=== PATIENT | male | born 1965 | race Caucasian/White ===

== ENCOUNTER 2017-12-10 11:05 | Emergency (ER) | payer OTHER ==
--- NOTE | 2017-12-10 11:27 | EDM.PDOC ---
ED HPI GENERAL MEDICAL PROBLEM - General Chief Complaint: Abdominal Pain Stated Complaint: PAIN IN ABD. Time Seen by Provider: 12/10/17 11:26 Source of Information: Reports: Patient History Limitations: Reports: No Limitations - History of Present Illness INITIAL COMMENTS - FREE TEXT/NARRATIVE: HISTORY AND PHYSICAL: []52-year-old male presenting with abdominal pain History of Present Illness: []Patient reports being ill 1 week with abdominal pain increasing this morning Pain is rated 8/10 Patient reports diarrhea last night and then 2 formed stools today Patient reports that a couple years ago he had a punctured lung. Review of Systems: As per history of present illness and below otherwise all systems reviewed and negative. Past medical history: As per history of present illness and as reviewed below otherwise noncontributory. Surgical history: As per history of present illness and as reviewed below otherwise noncontributory. Has had an appendectomy Social history: No reported history of drug or alcohol abuse. Family history: As per history of present illness and as reviewed below otherwise noncontributory. Physical exam: Pleasant alert and oriented gentleman answering questions appropriately in full sentences without any shortness of breath. Facial grimaces when moving. HEENT: Atraumatic, normocehpalic, pupils reactive, negative for conjunctival pallor or scleral icterus, mucous membranes moist, throat clear, neck supple, nontender, trachea midline. Lungs: Clear to auscultation, breath sounds equal bilaterally, chest non tender. Heart: S1S2, regular, negative for clicks, rubs, or JVD. Abdomen: Soft, mildly distended, exquisite tenderness. Mild rebound to right lower quadrant. Negative for masses or hepatossplenmegaly. Negative for costovertebral tenderness. Pelvis: Stable nontender. Genitourinary: Deferred. Rectal: Deferred Extremities: Atraumatic, negative for cords or calf pain. Neurovascular unremarkable. Neuro: Awake, alert, oriented. Cranial nerves II through XII unremarkable. Cerebellum unremarkable. Motor and sensory unremarkable throughout. Exam nonfocal. 14:[address] Aguilera for evaluation after the CT scan complete. 1420 Dr. Aguilera is here has really reexamined this patient will need to transfer this patient due to his gastric bypass and [facility] 1 call to [facility] Dr. Toure is the surgeon extrusion press operator said that the patient at 1445 Dr. Aguilera and I have discussed with this patient the necessity to fly him for transfer to [place] to achieve best care. He is agreeable to this recommended course of action Diagnostics: [CBC CMP amylase lipase abdominal pelvis CT] Therapeutics: []IV fluids Morphine Zofran Dilaudid Impression: []Peritonitis Plan: [Transfer per area of the chest to [facility]] Definitive disposition and diagnosis as appropriate pending reevaluation and review of above. Onset: Today, Sudden Duration: Hour(s):, Other (Has been gradually pain for 1 week worsening today) Location: Reports: Abdomen Quality: Reports: Stabbing, Throbbing Severity: Severe Improves with: Reports: None Worsens with: Reports: None abdomen Pain Score (Numeric/FACES): 8 - Related Data Allergies Allergy/AdvReac Type Severity Reaction Status Date / Time No Known Allergies Allergy Verified 12/10/17 11:16 Home Meds: Home Meds Allopurinol [Zyloprim] 300 mg PO DAILY 12/10/17 [History] DULoxetine [Cymbalta] 30 mg PO DAILY 12/10/17 [History] Temazepam 300 mg PO DAILY 12/10/17 [History] lamoTRIgine [Lamotrigine] 200 mg PO DAILY 12/10/17 [History] Past Medical History HEENT History: Reports: Other (See Below) Other HEENT History: Deviated Septum Cardiovascular History: Reports: Hypertension Respiratory History: Reports: None Gastrointestinal History: Reports: GERD Genitourinary History: Reports: None Musculoskeletal History: Reports: None Neurological History: Reports: None Psychiatric History: Reports: Bipolar, Depression Endocrine/Metabolic History: Reports: Hypothyroidism Hematologic History: Reports: None Immunologic History: Reports: None Oncologic (Cancer) History: Reports: None Dermatologic History: Reports: None - Infectious Disease History Infectious Disease History: Reports: Chicken Pox, Measles, Mumps, Other (See Below) Other Infectious Disease History: Childhood - Past Surgical History Head Surgeries/Procedures: Reports: None HEENT Surgical History: Reports: None Cardiovascular Surgical History: Reports: None Respiratory Surgical History: Reports: None GI Surgical History: Reports: Appendectomy, Bariatric Procedure, Cholecystectomy Male Surgical History: Reports: None Endocrine Surgical History: Reports: None Neurological Surgical History: Reports: None Musculoskeletal Surgical History: Reports: None Oncologic Surgical History: Reports: None Dermatological Surgical History: Reports: None Social & Family History - Family History Family Medical History: Noncontributory - Tobacco Use Smoking Status *Q: Never Smoker Second Hand Smoke Exposure: No - Caffeine Use Caffeine Use: Reports: Coffee, Energy Drinks - Recreational Drug Use Recreational Drug Use: No ED ROS GENERAL - Review of Systems Review Of Systems: ROS reveals no pertinent complaints other than HPI. ED EXAM, GI/ABD - Physical Exam Exam: See Below (See dictation) Course - Vital Signs Last Recorded V/S: Last Vital Signs Temp 35.7 C 12/10/17 11:13 Pulse 92 12/10/17 11:13 Resp 18 12/10/17 11:13 BP 131/83 12/10/17 11:13 Pulse Ox 93 L 12/10/17 11:13 - Orders/Labs/Meds Orders: Active Orders 24 hr Category Date Time Status Abdomen Pelvis w Cont [CT] Stat Exams 12/10/17 11:30 Taken CULTURE URINE [RM] Stat Lab 12/10/17 11:40 Received Sodium Chloride 0.9% [Normal Saline] 1,000 ml Med 12/10/17 14:08 Active IV STAT Sodium Chloride 0.9% [Normal Saline] 500 ml Med 12/10/17 11:30 Active IV STAT Sodium Chloride 0.9% [Saline Flush] Med 12/10/17 11:30 Active 10 ml FLUSH ASDIRECTED PRN Sodium Chloride 0.9% [Saline Flush] Med 12/10/17 11:30 Active 2.5 ml FLUSH ASDIRECTED PRN Saline Lock Insert [OM.PC] Stat Oth 12/10/17 11:29 Ordered Medication Orders Sodium Chloride (Normal Saline) 500 mls @ 999 mls/hr IV STAT MARLON Sodium Chloride (Normal Saline) 1,000 mls @ 999 mls/hr IV STAT ONE Stop: 12/10/17 15:08 Last Admin: 12/10/17 14:53 Dose: 999 mls/hr Sodium Chloride (Saline Flush) 10 ml FLUSH ASDIRECTED PRN PRN Reason: Keep Vein Open Sodium Chloride (Saline Flush) 2.5 ml FLUSH ASDIRECTED PRN PRN Reason: Keep Vein Open Labs: Laboratory Tests 12/10/17 12/10/17 12/10/17 Range/Units 11:40 12:06 12:06 WBC 14.14 H (4.0-11.0) K/uL RBC 5.24 (4.50-5.90) M/uL Hgb 17.2 H (13.0-17.0) g/dL Hct 50.1 H (38.0-50.0) % MCV 95.6 (80.0-98.0) fL MCH 32.8 H (27.0-32.0) pg MCHC 34.3 (31.0-37.0) g/dL RDW Std Deviation 47.0 (28.0-62.0) fl RDW Coeff of [place] 13 (11.0-15.0) % Plt Count 219 (150-400) K/uL MPV 9.90 (7.40-12.00) fL Neut % (Auto) 84.2 H (48.0-80.0) % Lymph % (Auto) 8.2 L (16.0-40.0) % [place] % (Auto) 7.3 (0.0-15.0) % Eos % (Auto) 0.1 (0.0-7.0) % Baso % (Auto) 0.2 (0.0-1.5) % Neut # (Auto) 11.9 H (1.4-5.7) K/uL Lymph # (Auto) 1.2 (0.6-2.4) K/uL [place] # (Auto) 1.0 H (0.0-0.8) K/uL Eos # (Auto) 0.0 (0.0-0.7) K/uL Baso # (Auto) 0.0 (0.0-0.1) K/uL Nucleated RBC % 0.0 /100WBC Nucleated RBCs # 0 K/uL Sodium 139 (136-146) mmol/L Potassium 4.4 (3.5-5.1) mmol/L Chloride 107 (98-110) mmol/L Carbon Dioxide 19 L (21-31) mmol/L BUN 12 (6.0-23.0) mg/dL Creatinine 0.7 (0.6-1.5) mg/dL Est Cr Clr Drug Dosing 139.51 mL/min Estimated GFR (MDRD) > 60.0 ml/min Glucose 104 (60-110) mg/dL Calcium 9.5 (8.8-10.8) mg/dL Total Bilirubin 1.7 H (0.1-1.5) mg/dL AST 26 (5-40) IU/L ALT 23 (8-54) IU/L Alkaline Phosphatase 105 (40-150) Total Protein 6.8 (6.0-8.0) g/dL Albumin 4.4 (3.5-5.0) g/dL Globulin 2.4 (2.0-3.5) g/dL Albumin/Globulin Ratio 1.8 (1.3-2.8) Amylase 38 (10-90) U/L Lipase < 9 (7-80) U/L Urine Color YELLOW Urine Appearance CLEAR Urine pH 5.0 (5.0-8.0) Ur Specific [place] 1.025 (1.001-1.035) Urine Protein NEGATIVE (NEGATIVE) mg/dL Urine Glucose (UA) NEGATIVE (NEGATIVE) mg/dL Urine Ketones >=80 (NEGATIVE) mg/dL Urine Occult Blood NEGATIVE (NEGATIVE) Urine Nitrite NEGATIVE (NEGATIVE) Urine Bilirubin SMALL H (NEGATIVE) Urine Ictotest NEGATIVE Urine Urobilinogen 0.2 (<2.0) EU/dL Ur Leukocyte Esterase NEGATIVE (NEGATIVE) Urine RBC NONE SEEN (0-2/HPF) Urine WBC NONE SEEN (0-5/HPF) Ur Squamous Epith Cells FEW Calcium Oxalate Crystal MANY (NEGATIVE) Urine Bacteria NOT SEEN (NEGATIVE) Urine Mucus LIGHT (NONE-MOD) Meds: Medications Generic Name Dose Route Start Last Admin Trade Name Freq PRN Reason Stop Dose Admin Sodium Chloride 500 mls @ 999 mls/hr 12/10/17 11:30 Normal Saline IV STAT MARLON Sodium Chloride 1,000 mls @ 999 mls/hr 12/10/17 14:08 12/10/17 14:53 Normal Saline IV 12/10/17 15:08 999 mls/hr STAT ONE Administration Sodium Chloride 10 ml 12/10/17 11:30 Saline Flush FLUSH ASDIRECTED PRN Keep Vein Open Sodium Chloride 2.5 ml 12/10/17 11:30 Saline Flush FLUSH ASDIRECTED PRN Keep Vein Open Discontinued Medications Generic Name Dose Route Start Last Admin Trade Name Freq PRN Reason Stop Dose Admin Hydromorphone HCl 1 mg 12/10/17 14:06 Dilaudid IVPUSH 12/10/17 14:07 ONETIME ONE Hydromorphone HCl Confirm 12/10/17 14:50 Dilaudid Administered 12/10/17 14:51 Dose 1 mg .ROUTE .STK-MED ONE Hydromorphone HCl 1 mg 12/10/17 14:56 Dilaudid IM 12/10/17 14:57 ONETIME ONE Hydromorphone HCl 1 mg 12/10/17 14:57 12/10/17 14:57 Dilaudid IVPUSH 12/10/17 14:58 1 mg ONETIME ONE Administration Sodium Chloride 1,000 mls @ 999 mls/hr 12/10/17 12:39 12/10/17 12:40 Normal Saline IV 12/10/17 13:39 999 mls/hr STAT ONE Administration Iopamidol 100 ml 12/10/17 13:07 12/10/17 13:07 Isovue-370 (76%) IVPUSH 12/10/17 13:08 100 ml ONETIME STA Administration Morphine Sulfate 2 mg 12/10/17 11:30 12/10/17 12:42 Morphine IVPUSH 12/10/17 11:31 2 mg ONETIME ONE Administration Ondansetron HCl 4 mg 12/10/17 11:30 12/10/17 12:40 Zofran IVPUSH 12/10/17 11:31 4 mg ONETIME ONE Administration Ondansetron HCl 4 mg 12/10/17 14:46 12/10/17 14:54 Zofran IVPUSH 12/10/17 14:47 4 mg ONETIME ONE Administration Departure - Departure Time of Disposition: 15:01 Disposition: DC/Tfer to Acute Hospital 02 Condition: Fair Clinical Impression: Peritonitis (acute) generalized - Discharge Information Referrals: PCP,Not In Area [Primary Care Provider] - Forms: ED Department Discharge - My Orders Last 24 Hours: My Active Orders 12/10/17 11:29 Saline Lock Insert [OM.PC] Stat 12/10/17 11:30 Abdomen Pelvis w Cont [CT] Stat Sodium Chloride 0.9% [Normal Saline] 500 ml IV STAT Sodium Chloride 0.9% [Saline Flush] 10 ml FLUSH ASDIRECTED PRN Sodium Chloride 0.9% [Saline Flush] 2.5 ml FLUSH ASDIRECTED PRN 12/10/17 11:40 CULTURE URINE [RM] Stat 12/10/17 14:08 Sodium Chloride 0.9% [Normal Saline] 1,000 ml IV STAT - Assessment/Plan Last 24 Hours: My Active Orders 12/10/17 11:29 Saline Lock Insert [OM.PC] Stat 12/10/17 11:30 Abdomen Pelvis w Cont [CT] Stat Sodium Chloride 0.9% [Normal Saline] 500 ml IV STAT Sodium Chloride 0.9% [Saline Flush] 10 ml FLUSH ASDIRECTED PRN Sodium Chloride 0.9% [Saline Flush] 2.5 ml FLUSH ASDIRECTED PRN 12/10/17 11:40 CULTURE URINE [RM] Stat 12/10/17 14:08 Sodium Chloride 0.9% [Normal Saline] 1,000 ml IV STAT
[2017-12-10] MEDS ORDERED: Sodium Chloride 0.9% 2.5 ML Syringe FLUSH PRN (11:30)
[2017-12-10] MEDS ORDERED: Morphine 2 MG/ML Syringe IVPUSH ONE (11:30)
[2017-12-10] MEDS ORDERED: Sodium Chloride 0.9% 500 ML IV SCH (11:30)
[2017-12-10] MEDS ORDERED: Ondansetron 4 MG/2 ML SDV IVPUSH ONE ×2 (11:30→14:46)
[2017-12-10] MEDS ORDERED: Sodium Chloride 0.9% 10 ML Syringe FLUSH PRN (11:30)
[2017-12-10 12:34] LABS: CHLORIDE,CL 107 mmol/L (98-110); SODIUM,NA 139 mmol/L (136-146)
[2017-12-10] MEDS ORDERED: Sodium Chloride 0.9% 1,000 ML IV ONE ×2 (12:39→14:08)
[2017-12-10] MEDS ORDERED: Iopamidol 755 Mg/ML 100 ML Bottle IVPUSH STA (13:07)
[2017-12-10] MEDS ORDERED: HYDROmorphone 2 MG/ML Syringe IVPUSH ONE (14:06)
--- NOTE | 2017-12-10 14:47 | PCM.CONS ---
H&P History of Present Illness - General Date of Service: 12/10/17 Admit Problem/Dx: Abdominal pain Source of Information: Patient History Limitations: Reports: No Limitations - History of Present Illness Initial Comments - Free Text/Narative: Patient is a 52 year old male with a past medical history significant for a gastric bypass 13 years ago who presents with abdominal pain. He has been experiencing epigastric discomfort all week. It has been progressively worsening but today it suddenly became severe. He has intermittent reflux but doesnt take medication for it. His pain is now all over his abdomen and is made worse with palpation and movement. He feels nauseated and bloated. He denies fever. He had two BM yesterday and one today. abdomen Pain Score (Numeric/FACES): 8 - Related Data Allergies/Adverse Reactions: Allergies Allergy/AdvReac Type Severity Reaction Status Date / Time No Known Allergies Allergy Verified 12/10/17 11:16 Home Medications: Home Meds Allopurinol [Zyloprim] 300 mg PO DAILY 12/10/17 [History] DULoxetine [Cymbalta] 30 mg PO DAILY 12/10/17 [History] Temazepam 300 mg PO DAILY 12/10/17 [History] lamoTRIgine [Lamotrigine] 200 mg PO DAILY 12/10/17 [History] Past Medical History HEENT History: Reports: Other (See Below) Other HEENT History: Deviated Septum Cardiovascular History: Reports: Hypertension Respiratory History: Reports: None Gastrointestinal History: Reports: GERD Genitourinary History: Reports: None Musculoskeletal History: Reports: None Neurological History: Reports: None Psychiatric History: Reports: Bipolar, Depression Endocrine/Metabolic History: Reports: Hypothyroidism Hematologic History: Reports: None Immunologic History: Reports: None Oncologic (Cancer) History: Reports: None Dermatologic History: Reports: None - Infectious Disease History Infectious Disease History: Reports: Chicken Pox, Measles, Mumps, Other (See Below) Other Infectious Disease History: Childhood - Past Surgical History Head Surgeries/Procedures: Reports: None HEENT Surgical History: Reports: None Cardiovascular Surgical History: Reports: None Respiratory Surgical History: Reports: None GI Surgical History: Reports: Appendectomy, Bariatric Procedure, Cholecystectomy Male Surgical History: Reports: None Endocrine Surgical History: Reports: None Neurological Surgical History: Reports: None Musculoskeletal Surgical History: Reports: None Oncologic Surgical History: Reports: None Dermatological Surgical History: Reports: None Social & Family History - Family History Family Medical History: Noncontributory - Tobacco Use Smoking Status *Q: Never Smoker Second Hand Smoke Exposure: No - Caffeine Use Caffeine Use: Reports: Coffee, Energy Drinks - Recreational Drug Use Recreational Drug Use: No H&P Review of Systems - Review of Systems: Review Of Systems: ROS reveals no pertinent complaints other than HPI. Exam - Exam Exam: See Below - Vital Signs Vital Signs: Last Vital Signs Temp 35.7 C 12/10/17 11:13 Pulse 92 12/10/17 11:13 Resp 18 12/10/17 11:13 BP 131/83 12/10/17 11:13 Pulse Ox 93 L 12/10/17 11:13 Weight: 125.4 kg - Exam General: Alert, Severe Distress HEENT: Conjunctiva Clear, Mucosa Moist & [place], Pupils Equal, Pupils Reactive Lungs: Normal Respiratory Effort Cardiovascular: Regular Rate GI/Abdominal Exam: Soft, Guarding, Rigid, Rebound, Tender Extremities: Normal Inspection - Patient Data Lab Results Last 24 hrs: Laboratory Results - last 24 hr 12/10/17 12/10/17 12/10/17 Range/Units 11:40 12:06 12:06 WBC 14.14 H (4.0-11.0) K/uL RBC 5.24 (4.50-5.90) M/uL Hgb 17.2 H (13.0-17.0) g/dL Hct 50.1 H (38.0-50.0) % MCV 95.6 (80.0-98.0) fL MCH 32.8 H (27.0-32.0) pg MCHC 34.3 (31.0-37.0) g/dL RDW Std Deviation 47.0 (28.0-62.0) fl RDW Coeff of [place] 13 (11.0-15.0) % Plt Count 219 (150-400) K/uL MPV 9.90 (7.40-12.00) fL Neut % (Auto) 84.2 H (48.0-80.0) % Lymph % (Auto) 8.2 L (16.0-40.0) % [place] % (Auto) 7.3 (0.0-15.0) % Eos % (Auto) 0.1 (0.0-7.0) % Baso % (Auto) 0.2 (0.0-1.5) % Neut # (Auto) 11.9 H (1.4-5.7) K/uL Lymph # (Auto) 1.2 (0.6-2.4) K/uL [place] # (Auto) 1.0 H (0.0-0.8) K/uL Eos # (Auto) 0.0 (0.0-0.7) K/uL Baso # (Auto) 0.0 (0.0-0.1) K/uL Nucleated RBC % 0.0 /100WBC Nucleated RBCs # 0 K/uL Sodium 139 (136-146) mmol/L Potassium 4.4 (3.5-5.1) mmol/L Chloride 107 (98-110) mmol/L Carbon Dioxide 19 L (21-31) mmol/L BUN 12 (6.0-23.0) mg/dL Creatinine 0.7 (0.6-1.5) mg/dL Est Cr Clr Drug Dosing 139.51 mL/min Estimated GFR (MDRD) > 60.0 ml/min Glucose 104 (60-110) mg/dL Calcium 9.5 (8.8-10.8) mg/dL Total Bilirubin 1.7 H (0.1-1.5) mg/dL AST 26 (5-40) IU/L ALT 23 (8-54) IU/L Alkaline Phosphatase 105 (40-150) Total Protein 6.8 (6.0-8.0) g/dL Albumin 4.4 (3.5-5.0) g/dL Globulin 2.4 (2.0-3.5) g/dL Albumin/Globulin Ratio 1.8 (1.3-2.8) Amylase 38 (10-90) U/L Lipase < 9 (7-80) U/L Urine Color YELLOW Urine Appearance CLEAR Urine pH 5.0 (5.0-8.0) Ur Specific [place] 1.025 (1.001-1.035) Urine Protein NEGATIVE (NEGATIVE) mg/dL Urine Glucose (UA) NEGATIVE (NEGATIVE) mg/dL Urine Ketones >=80 (NEGATIVE) mg/dL Urine Occult Blood NEGATIVE (NEGATIVE) Urine Nitrite NEGATIVE (NEGATIVE) Urine Bilirubin SMALL H (NEGATIVE) Urine Ictotest NEGATIVE Urine Urobilinogen 0.2 (<2.0) EU/dL Ur Leukocyte Esterase NEGATIVE (NEGATIVE) Urine RBC NONE SEEN (0-2/HPF) Urine WBC NONE SEEN (0-5/HPF) Ur Squamous Epith Cells FEW Calcium Oxalate Crystal MANY (NEGATIVE) Urine Bacteria NOT SEEN (NEGATIVE) Urine Mucus LIGHT (NONE-MOD) Result Diagrams: 12/10/17 12:06 12/10/17 12:06 Consult PN Assessment/Plan (1) Free intraperitoneal air SNOMED Code(s): 47710417 Code(s): K66.8 - OTHER SPECIFIED DISORDERS OF PERITONEUM Current Visit: Yes (2) Peritonitis (acute) generalized SNOMED Code(s): 84649089 Code(s): K65.0 - GENERALIZED (ACUTE) PERITONITIS Current Visit: Yes Problem List Initiated/Reviewed/Updated: Yes Plan: Patient is a 52 year old male with an acute abdomen and free air on CT. Based on his story and the free air mainly in the upper abdomen I would surmise that he has a perforated GJ ulcer. He will need to undergo surgery at a center with bariatric surgery available. He should be kept strictly NPO, be given IVF, and IV antibiotics. He will be transferred to [place].
[2017-12-10] MEDS ORDERED: HYDROmorphone 1 MG/ML Syringe ONE (14:50)
[2017-12-10] MEDS ORDERED: HYDROmorphone 1 MG/ML Syringe IM ONE (14:56)
[2017-12-10] MEDS ORDERED: HYDROmorphone 1 MG/ML Syringe IVPUSH ONE (14:57)
[2017-12-10] MEDS ORDERED: Piperacillin/Tazobactam 4.5 GM in Sodium Chloride 0.9% 100 ML IV ONE (15:07)
--- NOTE | 2017-12-11 11:47 | CT ---
EXAM DATE: 12/10/17 PATIENT'S AGE: 52 Patient: NICOLA PEREZ Facility: [place], [place] Site . Site : [id number] Study: CT Abdomen/Pelvis W LAURA [id number]/25/2018 1:12:03 PM Ordering Physician: Doctor Spencer Final Report: INDICATION: Abdominal pain and nausea TECHNIQUE: CT abdomen and pelvis acquired with 100 cc Isovue 370 IV contrast. COMPARISON: None. FINDINGS: Lower chest: Unremarkable. Liver: Unremarkable. Normal in size and attenuation. No masses. Gallbladder and bile ducts: Status post cholecystectomy. No biliary dilatation. Pancreas: Unremarkable. No mass or inflammation. Spleen: Unremarkable. Normal in size. No masses. Adrenal glands: Unremarkable. No nodules. Kidneys: Unremarkable. No masses, stones, or hydronephrosis. GI tract: There are postoperative changes from a gastric bypass procedure. GI tract is normal in caliber. A small hiatal hernia is present. Vasculature: Unremarkable. Lymph nodes: No lymphadenopathy. Omentum/Peritoneum/Abdominal Wall: There is scattered free air in the upper abdomen, this is most concentrated about the stomach. No fluid collections nor masses. Pelvis: Small amount of free fluid is in the pelvis. Otherwise unremarkable. Bones: Moderate multilevel degenerative spondylosis in the lumbar spine with multiple disc bulges. No other significant finding. IMPRESSION: 1. Free air is present in the upper abdomen. There are also gastric bypass changes. This free air would be expected if the gastric bypass procedure was recent. Otherwise gastric or bowel perforation must be considered. GI tract is otherwise unremarkable. 2. No other acute or specific finding to explain abdominal pain or nausea. Dictated by Gilles Hinojosa MD @ 12/10/2017 2:02:40 PM Dictated by: Gilles Hinojosa MD @ 12/10/2017 14:02:51 (Electronic Signature) Report Signed by Proxy. ELADIO
== END 2017-12-10 15:28 ==
LOC: MW.ED 11:05
DX: K65.0 Generalized (acute) peritonitis (principal); I10 Essential (primary) hypertension; F32.9 Major depressive disorder, single episode, unspecified; Z98.84 Bariatric surgery status; Z90.49 Acquired absence of other specified parts of digestive tract; Z79.899 Other long term (current) drug therapy
CPT/HCPCS: 36415; 74177; 80053; 81001; 82150; 83690; 85025; 87086; 96361; 96365; 96375; 96376; 99285; J1170; J2270; J2405; J2543; J7030; J7040; Q9967; 99284